=== PATIENT | female | born 1955 | race Caucasian/White ===

== ENCOUNTER 2019-02-20 13:37 | Outpatient (CLI) | payer MEDICARE ==
--- NOTE | 2019-02-20 14:33 | MMO ---
Bilateral MAMMO Bilat Screen [facility]. CLINICAL HISTORY: Patient is 63 years old and is seen for screening. The patient has no family history of breast cancer. The patient has no personal history of cancer. The patient has a history of left Explantation in 2017, bilateral Implants in 2017 and Implants. VIEWS: The views performed were: bilateral craniocaudal with tomosynthesis; bilateral mediolateral oblique with tomosynthesis; and bilateral Implant displaced with tomosynthesis. FILMS COMPARED: The present examination has been compared to prior imaging studies performed at [facility] on 12/16/2016, and at [place], [facility] on 06/05/2014. MAMMOGRAM FINDINGS: There are scattered fibroglandular densities. There are no suspicious masses, suspicious calcifications, or new areas of architectural distortion. IMPRESSION: THERE IS NO MAMMOGRAPHIC EVIDENCE OF MALIGNANCY. A ROUTINE FOLLOW-UP MAMMOGRAM IN 1 YEAR IS RECOMMENDED. THE RESULTS OF THIS EXAM WERE SENT TO THE PATIENT. ACR BI-RADS Category 1 - Negative MAMMOGRAPHY NOTE: 1. A negative mammogram report should not delay a biopsy if a dominant of clinically suspicious mass is present. 2. Approximately 10% to 15% of breast cancers are not detected by mammography. 3. Adenosis and dense breasts may obscure an underlying neoplasm.
== END 2019-02-20 13:38 | disposition home or self-care (01) ==
LOC: BICMAMMO 13:37
PROVIDERS: ATTEND Family Medicine
DX: Z12.31 Encounter for screening mammogram for malignant neoplasm of breast (principal)
CPT/HCPCS: 77063; 77067

== ENCOUNTER 2019-04-04 10:41 | Outpatient (CLI) | payer MEDICARE ==
--- NOTE | 2019-04-04 12:11 | CT ---
CT CHEST WITHOUT CONTRAST: Axial tomograms were obtained through the chest without IV enhancement. Low-dose screening protocol was followed. INDICATION: Nicotine dependence. FINDINGS: Mild hyperexpansion. Mild interstitial prominence in the periphery of both lungs appears chronic. There are scattered tiny nodules seen. A 2-3 mm nodule in the anterior right upper lobe and an adjac ent 2-3 mm nodule in the right upper lobe is noted. A small 3 mm nodule in the peripheral superior r ight lower lobe, image 145. Stranding in the left lung base. Mediastinum unremarkable. Bilateral breast prostheses. IMPRESSION: Mild chronic lung changes with hyperexpansion and mild interstitial thickening bilaterally. There ar e scattered tiny nodules as described. Recommend 1-year followup low-dose chest CT. Lung RADS 2. POS: [facility]
== END 2019-04-04 10:42 | disposition home or self-care (01) ==
LOC: CT 10:41
PROVIDERS: ATTEND Family Medicine
DX: F17.210 Nicotine dependence, cigarettes, uncomplicated (principal); R91.8 Other nonspecific abnormal finding of lung field
CPT/HCPCS: G0297

== ENCOUNTER 2020-02-26 10:38 | Outpatient (CLI) | payer MEDICARE ==
--- NOTE | 2020-02-26 11:30 | MMO ---
Bilateral MAMMO Bilat Screen [facility]. CLINICAL HISTORY: Patient is 64 years old and is seen for screening. The patient has no family history of breast cancer. The patient has no personal history of cancer. The patient has a history of left Explantation in 2017, bilateral Implants in 2017 and Implants at age 40. VIEWS: The views performed were: bilateral craniocaudal; bilateral craniocaudal with tomosynthesis; bilateral mediolateral oblique; bilateral mediolateral oblique with tomosynthesis; and bilateral Implant displaced with tomosynthesis. FILMS COMPARED: The present examination has been compared to prior imaging studies performed at [facility] on 12/16/2016 and 02/20/2019, and at [facility], [facility]. on 06/05/2014. This study has been interpreted with the assistance of computer-aided detection. MAMMOGRAM FINDINGS: There are scattered fibroglandular densities. There are no suspicious masses, suspicious calcifications, or new areas of architectural distortion. IMPRESSION: THERE IS NO MAMMOGRAPHIC EVIDENCE OF MALIGNANCY. A ROUTINE FOLLOW-UP MAMMOGRAM IN 1 YEAR IS RECOMMENDED. THE RESULTS OF THIS EXAM WERE SENT TO THE PATIENT. ACR BI-RADS Category 1 - Negative MAMMOGRAPHY NOTE: 1. A negative mammogram report should not delay a biopsy if a dominant of clinically suspicious mass is present. 2. Approximately 10% to 15% of breast cancers are not detected by mammography. 3. Adenosis and dense breasts may obscure an underlying neoplasm. Reported by: MIKY LIU MD Electonically Signed: [id number]
== END 2020-02-26 10:39 | disposition home or self-care (01) ==
LOC: BICMAMMO 10:38
PROVIDERS: ATTEND Family Medicine
DX: Z12.31 Encounter for screening mammogram for malignant neoplasm of breast (principal); Z98.82 Breast implant status
CPT/HCPCS: 77063; 77067

== ENCOUNTER 2020-04-25 14:18 | Outpatient (CLI) | payer MEDICARE ==
[~2020-04-25 14:18] MED LIST: Iopamidol 370 76% 100 ML VIAL ONE
--- NOTE | 2020-04-25 16:14 | CT ---
CT CHEST WITH IV CONTRAST: 04/25/20 HISTORY: Pulmonary nodules. COMPARISON: LDCT of the chest of 04/08/20. No mediastinal, hilar or axillary mass or lymphadenopathy is seen. There is no evidence of aneurysma l dilatation of the thoracic aorta. No pleural or pericardial effusions are seen. There are bilateral breast implants. The less than 4 mm pulmonary nodules in the right upper lobe (two in number) and the right lower lobe (one in number) are stable. No new nodules are seen. Scarring in the medial aspect of the right uppe r lobe and right middle lobe and the left lung base are stable. Tiny nonobstructing bilateral renal c alculi are stable. IMPRESSION: Stable tiny lung nodules. A follow-up LDCT is recommended in 12 months. POS: [facility]
== END 2020-04-25 14:19 | disposition home or self-care (01) ==
LOC: BICCT 14:18
PROVIDERS: ATTEND Family Medicine
DX: R91.8 Other nonspecific abnormal finding of lung field (principal)
CPT/HCPCS: 36415; 71260; 80053; 80061; 81001; 83036; 86803

== ENCOUNTER 2021-07-22 10:28 | Outpatient (CLI) | payer MEDICARE | END 2021-07-22 10:29 | disposition home or self-care (01) | LOC: BICCT 10:28 | PROVIDERS: ATTEND Family Medicine | DX: Z12.2 Encounter for screening for malignant neoplasm of respiratory organs (principal); F17.210 Nicotine dependence, cigarettes, uncomplicated; N20.0 Calculus of kidney | CPT/HCPCS: 71271 ==

== ENCOUNTER 2022-05-12 12:35 | Outpatient (CLI) | payer MEDICARE, OTHER | END 2022-05-12 12:36 | disposition home or self-care (01) | LOC: BICMAMMO 12:35 | PROVIDERS: ATTEND Family Medicine | DX: Z12.31 Encounter for screening mammogram for malignant neoplasm of breast (principal); Z13.820 Encounter for screening for osteoporosis; N95.9 Unspecified menopausal and perimenopausal disorder; Z98.82 Breast implant status | CPT/HCPCS: 77063; 77067; 77080 ==

== ENCOUNTER 2022-08-12 12:26 | Outpatient (CLI) | payer OTHER | END 2022-08-12 12:27 | disposition home or self-care (01) | LOC: BICCT 12:26 | PROVIDERS: ATTEND Family Medicine | DX: Z12.2 Encounter for screening for malignant neoplasm of respiratory organs (principal); F17.210 Nicotine dependence, cigarettes, uncomplicated; R91.1 Solitary pulmonary nodule | CPT/HCPCS: 71271 ==

== ENCOUNTER 2023-06-14 12:37 | Outpatient (CLI) | payer OTHER | END 2023-06-14 12:38 | disposition home or self-care (01) | LOC: BICMAMMO 12:37 | PROVIDERS: ATTEND Family Medicine | DX: Z12.31 Encounter for screening mammogram for malignant neoplasm of breast (principal); Z98.82 Breast implant status | CPT/HCPCS: 77063; 77067 ==

== ENCOUNTER 2024-08-28 10:39 | Outpatient (CLI) | payer OTHER | END 2024-08-28 10:40 | disposition home or self-care (01) | LOC: BICMAMMO 10:39 | PROVIDERS: ATTEND Family Medicine | DX: Z12.31 Encounter for screening mammogram for malignant neoplasm of breast (principal); Z98.82 Breast implant status | CPT/HCPCS: 77063; 77067 ==

== ENCOUNTER 2025-06-05 09:43 | Emergency (ER) | payer OTHER ==
[2025-06-05 12:13] LABS: #Basophils 0.03 10x3/uL (0.0-0.2); #Eosinophils 0.75 10x3/uL (0.0-0.7); #Monocytes 1.00 10x3/uL (0.11-0.59); #Neutrophils 8.45 10x3/uL (1.40-6.50); %Basophils 0.3 % (0.0-1.0); %Eosinophils 6.4 % (0.0-10.0); %Lymphocytes 12.6 % (21.0-51.0); %Monocytes 8.5 % (0.0-10.0); %Neutrophils 71.8 % (42.0-75.0); Hematocrit 43.4 % (36.0-47.0); Hemoglobin 15.4 g/dL (12.0-16.0); Mean Corpuscular Hemoglobin 32.6 pg (27.0-31.0); Mean Corpuscular Volume 91.9 fL (78.0-98.0); Platelet Count 233 10x3/uL (130-400); Red Blood Cell (RBC) Count 4.72 mill/uL (4.20-5.40); White Blood Cell (WBC) Count 11.76 10x3/uL (4.8-10.8)
[2025-06-05 12:27] LABS: ALT (SGPT) 14 U/L (Less than 34); AST (SGOT) 15 U/L (11-34); Albumin 3.7 g/dL (3.1-4.5); Alkaline Phosphatase 93 U/L (40-110); Anion Gap 11 mmol/L (10-20); BUN (Urea Nitrogen) 7 mg/dL (9.8-20.1); Bilirubin, Total 1.1 mg/dL (0.3-1.2); Calc. Creatinine Clearance 0 mL/min (70-130); Calcium 8.8 mg/dL (7.8-10.44); Carbon Dioxide 23 mmol/L (23-31); Chloride 106 mmol/L (98-107); Globulin 2.8 g/dL (2.4-3.5); Glucose 114 mg/dL (80-115); Potassium 3.8 mmol/L (3.5-5.1); Sodium 136 mmol/L (136-145)
== END 2025-06-05 13:15 | disposition home or self-care (01) ==
LOC: ERS 09:43
DX: J06.9 Acute upper respiratory infection, unspecified (principal); F17.210 Nicotine dependence, cigarettes, uncomplicated
CPT/HCPCS: 71045; 80053; 83880; 84484; 85025; 93005; 94640